=== PATIENT | female | born 1960 | race African-American/Black ===

== ENCOUNTER 2018-04-01 14:09 | Emergency (ER) | payer OTHER ==
[~2018-04-01] VITALS: Ht 165.1 cm; Wt 72.0 kg
[2018-04-01] MEDS ORDERED: KETOROLAC 30MG/ML VIAL IM ONE (15:45)
[2018-04-01] MEDS ORDERED: MORPHINE SULFATE 10 MG/ML CPJ IM ONE ×2 (15:45→19:30)
[2018-04-01] MEDS ORDERED: ONDANSETRON 4MG ODT PO ONE ×2 (15:45→20:15)
[2018-04-01] MEDS ORDERED: DIAZEPAM 5 MG TABLET PO ONE (15:45)
[2018-04-01 16:48] LABS: CLARITY URINE CLEAR (CLEAR); COLOR URINE YELLOW (YELLOW); KETONES URINE NEGATIVE (NEGATIVE); LEUKOCYTE ESTERASE URINE NEGATIVE (NEGATIVE); NITRITE URINE NEGATIVE (NEGATIVE); OCCULT BLOOD URINE NEGATIVE (NEGATIVE); PH URINE 6.5 (4.5-8.0); PROTEIN URINE NEGATIVE (NEGATIVE); SPECIFIC GRAVITY URINE 1.009 (1.005-1.030); UROBILINOGEN URINE 0.2 E.U./dL (0.2-1.0)
[2018-04-01 20:20] VITALS: BP 159/106
== END 2018-04-01 20:32 | disposition home or self-care (01) ==
LOC: ER 14:09
DX: M54.16 Radiculopathy, lumbar region (principal)
CPT/HCPCS: 74176; 81003; 96372; 99285; J1885; J2270; Q0162

== ENCOUNTER 2023-03-02 17:37 | Emergency (ER) | payer SELFPAY ==
[~2023-03-02] VITALS: Ht 162.6 cm; Wt 70.0 kg
[2023-03-02 17:52] VITALS: BP 184/98; O2SAT 100
[2023-03-02] MEDS ORDERED: ACETAMINOPHEN 325MG TABLET PO ONE (20:45)
[2023-03-02] MEDS ORDERED: KETOROLAC 60MG/2ML VIAL IM ONE (20:45)
[2023-03-02] MEDS ORDERED: DEXAMETHASONE 2MG TABLET PO ONE (20:45)
[2023-03-02] MEDS ORDERED: DEXAMETHASONE 4MG TABLET PO NR (21:15)
[2023-03-02] MEDS ORDERED: CYCL10TA21 MT (21:28)
[2023-03-02 21:42] VITALS: PULSE 79; RESP 20; TEMP 98.4
== END 2023-03-02 21:53 | disposition home or self-care (01) ==
LOC: ER 17:53
DX: M79.604 Pain in right leg (principal); Z85.6 Personal history of leukemia; I10 Essential (primary) hypertension; Z98.890 Other specified postprocedural states
CPT/HCPCS: 99283; 93005; J8540; J1885